=== PATIENT | male | born 1965 | race Caucasian/White ===

== ENCOUNTER 2017-12-01 12:00 | Observation (INO) | payer OTHER, SELFPAY ==
[2017-12-01] MEDS ORDERED: Multivitamins, Adult 10 ML, Thiamine HCl 100 MG, Folic Acid 1 MG in Dextrose 5 %-0.45 %... IV SCH ×4 (13:45)
[2017-12-01 14:20] LABS: #Basophils 0.1 thou/uL (0.0-0.2); #Eosinphils 0.1 thou/uL (0.0-0.7); #Lymphocytes 2.4 thou/uL (1.20-3.40); #Monocytes 0.7 thou/uL (0.11-0.59); #Neutrophils 7.3 thou/uL (1.40-6.50); %Basophils 0.8 % (0.0-1.0); %Eosinophils 0.5 % (0.0-10.0); %Lymphocytes 22.8 % (21.0-51.0); %Monocytes 6.9 % (0.0-10.0); Hemoglobin 18.1 g/dL (14.0-18.0); Mean Corpuscular HGB CONC 34.9 g/dL (32.0-36.0); Mean Corpuscular Hemoglobin 31.7 pg (27.0-31.0); Mean Platelet Volume 6.4 fL (7.4-10.4); Platelet Count 273 thou/uL (130-400); RBC Distribution Width 12.7 % (11.5-14.5); White Blood Cell (WBC) Count 10.6 thou/uL (4.8-10.8)
[2017-12-01 14:42] LABS: Troponin I Less than 0.010 ng/mL (< 0.028)
--- NOTE | 2017-12-01 14:45 | RAD ---
SINGLE VIEW OF THE CHEST: COMPARISON: 12/25/16. HISTORY: Chest pain. FINDINGS: Single view of the chest shows a normal sized cardiomediastinal silhouette. There is no evidence of c onsolidation, mass, or pleural effusion. The bones are unremarkable. IMPRESSION: No evidence of acute cardiopulmonary disease. POS: [facility]
[2017-12-01 14:48] LABS: ALT (SGPT) 123 U/L (8-55); AST (SGOT) 150 U/L (5-34); Acetaminophen Less than 6.0 mcg/mL (10.0-30.0); Albumin 4.5 g/dL (3.5-5.0); Alcohol 222 mg/dL (Less than 10); Alkaline Phosphatase 88 U/L (40-150); Anion Gap 21 mmol/L (10-20); BUN (Urea Nitrogen) 11 mg/dL (8.4-25.7); Bilirubin, Total 0.5 mg/dL (0.2-1.2); CK (CPK) 88 U/L (30-200); Calc. Creatinine Clearance 0 mL/min (70-130); Calcium 8.8 mg/dL (7.8-10.44); Carbon Dioxide 16 mmol/L (22-29); Chloride 97 mmol/L (98-107); Estimated GFR-MDRD Greater than 90; Globulin 3.5 g/dL (2.4-3.5); Glucose 104 mg/dL (70-105); Lipase 24 U/L (8-78); Potassium 4.4 mmol/L (3.5-5.1); Salicylate Less than 8.0 mg/dL (15.0-30.0); Sodium 130 mmol/L (136-145)
[2017-12-01] MEDS ORDERED: Nitroglycerin 2% Ointment 1 INCH/1 GM Packet ONE (14:54)
[2017-12-01] MEDS ORDERED: Lorazepam 2 MG/ML VIAL ONE (14:55)
[2017-12-01 15:27] LABS: Bilirubin Negative (Negative); Blood, Urine Moderate (Negative); Clarity CLEAR (Clear); Glucose, Urine (Dipstick) Negative (Negative); Leukocyte Negative (Negative); Nitrite Negative (Negative); Protein, Urine (Dipstick) Trace mg/dL (Neg-Trace); Specific Gravity, Urine 1.018 (1.002-1.036); Urobilinogen 0.2 mg/dL (0.2-1.0); pH, Urine 5.5 (5.0-9.0)
[2017-12-01 15:29] LABS: Bacteria/HPF None Seen HPF (None Seen); RBC/HPF None Seen HPF (0-3); Squamous Epithelial 0-3 HPF (0-3); WBC/HPF 0-3 HPF (0-3)
[2017-12-01 15:32] LABS: Pathc Cast-AUWi Flag 6.36 (0-2.49)
[2017-12-01 15:37] LABS: Amphetamine Not Detected (NotDetected); Barbiturates Screen Not Detected (NotDetected); Benzodiazepine Screen Not Detected (NotDetected); Cocaine Metabolite Screen Not Detected (NotDetected); Medtox Control Line Valid? VALID (VALID); Medtox Reader # READER 1; Methadone Not Detected (NotDetected); Methamphetamine Not Detected (NotDetected); Opiate Screen Not Detected (NotDetected); Oxycodone Screen Not Detected (NotDetected); Phencyclidine (PCP) Not Detected (NotDetected); THC/Cannabinoid Screen Not Detected (NotDetected); Tricyclic Screen Not Detected (NotDetected)
[2017-12-01 15:40] LABS: Hyaline Casts/LPF 4-6 HYALINE CAST LPF (0-3 Hyaline)
[2017-12-01 17:41] LABS: Troponin I Less than 0.010 ng/mL (< 0.028)
[2017-12-01] MEDS ORDERED: Milk Of Magnesia 30 ML UDCUP PO PRN (18:34)
[2017-12-01] MEDS ORDERED: Loperamide HCl 2 MG CAP PO PRN (18:34)
[2017-12-01] MEDS ORDERED: Chloraseptic Spray 180 ml Bottle PO PRN (18:34)
[2017-12-01] MEDS ORDERED: Ondansetron HCl/PF 4 MG/2 ML Vial IVP PRN (18:34)
[2017-12-01] MEDS ORDERED: Artificial Tear Sol 15 ML BOT EA EYE PRN (18:34)
[2017-12-01] MEDS ORDERED: Mag-Al 1200 mg/1200 mg/30 ML UDCUP PO PRN (18:34)
[2017-12-01] MEDS ORDERED: Sodium Chloride 0.65% Nasal 44 ML BOT EA NARE PRN (18:34)
[2017-12-01] MEDS ORDERED: Eucerin (Mineral Oil/Petrolatum,White) 30 gm Jar TOP PRN (18:34)
[2017-12-01] MEDS ORDERED: Diabetic Tussin 200 MG/10 ML UDCUP PO PRN (18:34)
[2017-12-01] MEDS ORDERED: Acetaminophen 325 MG TAB PO PRN (18:34)
[2017-12-01] MEDS ORDERED: Ondansetron ODT 4 MG TAB PO PRN (18:34)
[2017-12-01] MEDS ORDERED: Senokot 8.6 MG TAB PO PRN (18:34)
[2017-12-01] MEDS ORDERED: HYDROcodone/Acetaminophen 5/325 mg Tablet PO PRN (18:34)
[2017-12-01] MEDS ORDERED: Loratadine 10 MG TAB PO PRN (18:34)
[2017-12-01 18:45] VITALS: BMI 34.7
[2017-12-01] MEDS: Lorazepam 2 MG/ML VIAL SLOW IVP PRN ×2 (19:35→22:35)
[2017-12-01] MEDS ORDERED: Multivitamins, Adult 10 ML, Folic Acid 1 MG, Thiamine HCl 100 MG in Dextrose 5 %-0.45 %... IV SCH ×4 (20:00)
[2017-12-01] MEDS ORDERED: Pantoprazole 40 MG VIAL IVP SCH (21:00)
[2017-12-01 21:15] LABS: Troponin I Less than 0.010 ng/mL (< 0.028)
[2017-12-01] MEDS: hydrALAZINE 20 MG/ML VIAL SLOW IVP PRN (21:31)
--- NOTE | 2017-12-01 21:37 | HP ---
PRIMARY CARE PHYSICIAN: [facility]. REASON FOR ADMISSION: Alcohol intoxication, alcohol withdrawal syndrome, chest pain. HISTORY OF PRESENT ILLNESS: A 52-year-old male, who has history of alcohol abuse. He drinks in kris e episode. For last 10 days, he is drinking heavily. He is drinking 1 case of beer every day. He r eports that to get rid of his nervousness and anxiety, he drinks alcohol more and more. He was frust rated with the drinking. He was not able to stop drinking. When he tried to stop drinking, he was f eeling miserable. He was feeling anxious, palpitation, and vague chest discomfort. He went to local emergency room in drunk condition, but he was not allowed to stay in hospital. He was frustrated an d getting more and more anxious and that is why he wanted to get help and he came to our emergency ro om. In the emergency room, he was intoxicated. He was already started withdrawing from alcohol. He was anxious, apprehensive, tachycardic, hypertensive. He was not able to keep anything down. He pulliam d 2 episodes of vomiting today without any hematemesis, without any melena or hematochezia. He does feel mild epigastric burning discomfort, but denies any melena and denies any hematemesis. He denies any fall, trauma, or headache. He denies any fever or chills. He denies any flu-like illness. Thi s patient also had a similar-type of binge drinking alcohol in the past, required admission. When I saw this patient in the emergency room, he was not having any chest pain. He was given 81 and after that his anxiety significantly got better and his palpitation was improved and his chest pain subsided. ALLERGIES: No known drug allergies. CURRENT HOME MEDICATIONS: Omeprazole 20 mg p.o. daily, folic acid 1 mg p.o. daily, ferrous sulfate 3 25 mg p.o. daily, thiamine 100 mg p.o. daily, lisinopril 20 mg p.o. daily. REVIEW OF SYSTEMS: The following complete review of systems was negative, unless otherwise mentioned in the HPI or below: Constitutional: Weight loss or gain, ability to conduct usual activities. Sk in: Rash, itching. Eyes: Double vision, pain. ENT/Mouth: Nose bleeding, neck stiffness, pain, te nderness. Cardiovascular: Palpitations, dyspnea on exertion, orthopnea. Respiratory: Shortness of breath, wheezing, cough, hemoptysis, fever, or night sweats. Gastrointestinal: Poor appetite, abdo silvano pain, heartburn, nausea, vomiting, constipation, or diarrhea. Genitourinary: Urgency, frequen cy, dysuria, nocturia. Musculoskeletal: Pain, swelling. Neurologic/Psychiatric: Anxiety, depressi on. Allergy/Immunologic: Skin rash, bleeding tendency. Please see my HPI for pertinent positives a nd negatives. All other review of systems reviewed and negative except as mentioned in the HPI. PAST MEDICAL HISTORY: Hypertension and alcohol abuse. PAST PSYCHIATRIC HISTORY: Anxiety and depression. PAST SURGICAL HISTORY: Upper endoscopy, but no other surgery. FAMILY HISTORY: Mother has history of aortic aneurysm. Father has history of diverticulosis. SOCIAL HISTORY: Patient is smoking about 1-pack per day. He drinks beer in binge episode and curren daniely he was drinking one case of beer every day basis. He has been binge drinking a bit for the last 20 years. He denies any other illicit drug abuse. He lives with his parents. EMERGENCY ROOM COURSE: Patient was given banana bag, nitro patch, aspirin, and Ativan. PHYSICAL EXAMINATION: VITAL SIGNS: On arrival, blood pressure 175/110, pulse 120, respiratory rate 22, temperature 98.3, s aturation 97% on room air, weight 102 kilograms. GENERAL: The patient is currently poorly groomed, tachycardic, hypertensive, anxious, apprehensive. HEENT: Head: Normocephalic and atraumatic. Eyes: Pupils round and reactive to light. Extraocular muscle intact. No nystagmus. ENT: Dry-appearing mucous membranes. Poor dentition. No oral lesio ns. No pharyngeal erythema. No exudate. NECK: Supple, no JVD, no thyromegaly, no carotid bruit. LUNGS: Clear to auscultation without any rhonchi or rales. CARDIAC: S1 and S2 regular, tachycardia, no murmur, no gallop, no rub. ABDOMEN: Obesity present. Bowel sounds present. No peritoneal sign. No epigastric tenderness. No suprapubic tenderness. No rebound tenderness. BACK EXAMINATION: Unremarkable, no CVA tenderness. EXTREMITIES: Upper extremity passive movement of all joints are normal. Lower extremities: No fer a. Good peripheral pulsation. SKIN: No skin rash. HEMATOLOGICAL SYSTEM: No lymphadenopathy. NEUROLOGIC: Patient has tremor. No focal neurological deficit noted. The patient moves all 4 limbs . Speech normal. SIGNIFICANT LABORATORY DATA: EKG showing normal sinus rhythm, sinus tachycardia, left axis deviation . Chest x-ray, based on my review, no acute cardiopulmonary process. CBC: WBC 10.6, hemoglobin 18. 1, platelets 273. BMP: Sodium 130, potassium 4.4, chloride 97, carbon dioxide 16, anion gap 21, BUN 11, creatinine 0.79, glucose 104, calcium 8.8. LFTs: Total bilirubin 0.5, AST 150, ALT 123, alkali ne phosphatase 88, albumin 4.5, lipase 24. CK 88. Cardiac enzymes negative x2. Urinalysis, blood m ore moderate, RBC not seen. Urine drug screen negative, but alcohol level 222. ASSESSMENT AND PLAN: 1. Acute alcohol intoxication due to binge drinking habit. 2. Acute alcohol withdrawal syndrome. 3. Anion gap metabolic acidosis due to alcohol. 4. Hyponatremia and hypochloremia, likely due to beer potomania. 5. Transaminitis, likely due to alcohol abuse. 6. Hemoconcentration, likely due to dehydration. 7. Obesity with BMI 34. 8. Hypertension. 9. Peptic ulcer disease. 10. Chest pain, likely due to anxiety neurosis. 11. Tobacco abuse disorder and alcoholism. PLAN: Observation to telemetry floor. Do serial cardiac enzymes x3 to rule out acute coronary syndr ome. Start selected home medications including ferrous sulfate and Protonix, start a banana bag with multivitamin, start Ativan 1 mg IV q.2 hourly p.r.n., and start alcohol abstinence program protocol treatment. Check hepatitis profile to rule out any hepatitis. Continue with IV fluid and repeat lab s tomorrow. Counseling is given to avoid tobacco and alcohol abuse. We will offer nicotine patch if needed. We will repeat labs tomorrow. DISCUSSION: This patient had ultrasound before and it was normal. He had echocardiography before, w hich was unremarkable. His chest pain description is noncardiac, most likely anxiety neurosis. His Abnormal liver function tests, likely due to alcohol, but we will rule out hepatitis profile. We marisol l hydrate with IV fluid and we will repeat BMP tomorrow. If this patient's condition does not improv e in 24 hours, then we will consider changing to inpatient status. CODE STATUS: The patient is FULL CODE. The patient is making his decision by himself. He does not have any surrogate decision maker. Gastrointestinal prophylaxis, Protonix 40 mg IV b.i.d.
[2017-12-01 23:52] LABS: CKMB 1.8 ng/mL (0-6.6); Troponin I Less than 0.010 ng/mL (< 0.028)
[2017-12-02] MEDS: Lorazepam 2 MG/ML VIAL SLOW IVP PRN ×4 (01:03→12:29)
[2017-12-02 02:22] LABS: #Basophils 0.1 thou/uL (0.0-0.2); #Eosinphils 0.1 thou/uL (0.0-0.7); #Lymphocytes 2.2 thou/uL (1.20-3.40); #Neutrophils 6.8 thou/uL (1.40-6.50); %Basophils 0.9 % (0.0-1.0); %Eosinophils 0.6 % (0.0-10.0); %Lymphocytes 21.3 % (21.0-51.0); %Monocytes 9.8 % (0.0-10.0); %Neutrophils 67.2 % (42.0-75.0); Hemoglobin 15.2 g/dL (14.0-18.0); Mean Corpuscular Hemoglobin 31.6 pg (27.0-31.0); Mean Corpuscular Volume 90.2 fl (80.0-94.0); Mean Platelet Volume 6.2 fL (7.4-10.4); Platelet Count 211 thou/uL (130-400); RBC Distribution Width 12.6 % (11.5-14.5); Red Blood Cell (RBC) Count 4.82 mill/uL (4.70-6.10); White Blood Cell (WBC) Count 10.1 thou/uL (4.8-10.8)
[2017-12-02 02:49] LABS: CKMB 1.7 ng/mL (0-6.6); Troponin I Less than 0.010 ng/mL (< 0.028)
[2017-12-02 03:14] LABS: ALT (SGPT) 103 U/L (8-55); AST (SGOT) 114 U/L (5-34); Albumin 3.7 g/dL (3.5-5.0); Alkaline Phosphatase 75 U/L (40-150); Anion Gap 17 mmol/L (10-20); BUN (Urea Nitrogen) 9 mg/dL (8.4-25.7); Calc. Creatinine Clearance 188 mL/min (70-130); Calcium 8.8 mg/dL (7.8-10.44); Carbon Dioxide 18 mmol/L (22-29); Cardiac Risk 2.5 (Less than 4.5); Chloride 100 mmol/L (98-107); Cholesterol 185 mg/dl (< 200 Desired); Estimated GFR-MDRD Greater than 90; Glucose 90 mg/dL (70-105); HDL Cholesterol 73 mg/dL (>60 Neg Risk); LDL Cholesterol, Calculated 85 mg/dL; Magnesium 1.9 mg/dL (1.6-2.6); Phosphorus 2.9 mg/dL (2.3-4.7); Potassium 3.8 mmol/L (3.5-5.1); Protein, Total 6.7 g/dL (6.0-8.3); Sodium 131 mmol/L (136-145); Triglycerides 133 mg/dL (Less than 150)
[2017-12-02 03:25] LABS: HBCM Index 0.09 S/CO (0-0.79); HBSAg Index 0.78 S/CO (0-0.99); Hep A IgM AB Non-Reactive (NonReactive); Hep A IgM S/CO 0.17 S/CO (0-0.79); Hep B Surf Ag Non-Reactive S/CO (NonReactive); Hep C IgG Ab Non-Reactive (NonReactive); Hep C Index 0.19 S/CO (0-0.79); Hepatitis B Core IGM Abs Non-Reactive (NonReactive)
[2017-12-02] MEDS: hydrALAZINE 20 MG/ML VIAL SLOW IVP PRN (04:06)
[2017-12-02] MEDS ORDERED: Ferrous Sulfate 325 MG TAB PO SCH (09:00)
[2017-12-02] MEDS ORDERED: Folic Acid 1 MG TAB PO SCH (09:00)
[2017-12-02] MEDS ORDERED: Cyanocobalamin (Vitamin B-12) 1,000 MCG TAB PO SCH (09:00)
[2017-12-02] MEDS ORDERED: FLU VACC QS2017-18 36 mo. & older 0.5 ML SYRINGE IM ONE (09:00)
[2017-12-02] MEDS ORDERED: Lisinopril 20 MG TAB PO SCH (09:00)
[2017-12-02] MEDS ORDERED: Multivitamin W/ Minerals 1 TAB PO SCH (09:00)
[2017-12-02] MEDS ORDERED: Metoprolol Tartrate 25 MG TAB PO SCH (09:00)
--- NOTE | 2017-12-02 10:40 | PDOC.PN ---
- Subjective Encounter Start Date: 12/02/17 Encounter Start Time: 07:00 -: old records requested/rev Patient seen and examined. No new complaints. No overnight events - Objective Resuscitation Status: Resuscitation Status FULL:Full Resuscitation MAR Reviewed: Yes Vital Signs & Weight: Vital Signs (12 hours) Temp Pulse Resp BP BP BP Pulse Ox 12/02/17 08:00 99.1 F 114 H 18 12/02/17 07:47 99.1 F 114 H 18 178/99 H 95 12/02/17 05:59 114 H 180/93 H 12/02/17 04:06 106 H 194/105 H 12/02/17 04:00 194/105 H 12/02/17 03:57 98.7 F 106 H 20 194/105 H 95 12/02/17 00:00 176/86 H 12/01/17 23:34 98.6 F 110 H 18 176/86 H 93 L Weight Weight 235 lb 5 oz I&O: 12/01/17 12/02/17 12/03/17 06:59 06:59 06:59 Intake Total 734 Balance 734 Result Diagrams: 12/02/17 02:15 12/02/17 02:15 EKG Reviewed by me: Yes Phys Exam - Physical Examination Constitutional: NAD HEENT: PERRLA, moist MMs, sclera anicteric Neck: no JVD, supple Respiratory: no wheezing, no rales, no rhonchi Cardiovascular: RRR, no significant murmur, no rub Gastrointestinal: soft, non-tender, no distention, positive bowel sounds Musculoskeletal: no edema, pulses present Neurological: non-focal, normal sensation, moves all 4 limbs Psychiatric: normal affect, A&O x 3 Skin: no rash, normal turgor Dx/Plan (1) Alcohol intoxication Status: Acute (2) Alcohol withdrawal Code(s): F10.239 - ALCOHOL DEPENDENCE WITH WITHDRAWAL, UNSPECIFIED Status: Acute (3) High anion gap metabolic acidosis Code(s): E87.2 - ACIDOSIS Status: Acute (4) Sinus tachycardia Code(s): R00.0 - TACHYCARDIA, UNSPECIFIED Status: Acute (5) Chronic alcoholism Code(s): F10.20 - ALCOHOL DEPENDENCE, UNCOMPLICATED Status: Chronic Comment : on ASE, Counselled (6) Hypertension Code(s): I10 - ESSENTIAL (PRIMARY) HYPERTENSION Status: Chronic (7) Obesity (BMI 30.0-34.9) Code(s): E66.9 - OBESITY, UNSPECIFIED Status: Chronic (8) Tobacco abuse Code(s): Z72.0 - TOBACCO USE Status: Chronic Comment: Counselled - Plan cont current plan of care * add metoprolol for tachycardia * add ativan on discharge for anxiety * medication reviewed as below * symptomatic treatment * see discharge summery * all new medication prescription sent to pharmacy. Review of Systems - Review of Systems ENT: negative: Ear Pain, Ear Discharge, Nose Pain, Nose Discharge, Nose Congestion, Mouth Pain, Mouth Swelling, Throat Pain, Throat Swelling, Other Respiratory: negative: Cough, Dry, Shortness of Breath, Hemoptysis, SOB with Excertion, Pleuritic Pain, Sputum, Wheezing Cardiovascular: negative: chest pain, palpitations, orthopnea, paroxysmal nocturnal dyspnea, edema, light headedness, other Gastrointestinal: negative: Nausea, Vomiting, Abdominal Pain, Diarrhea, Constipation, Melena, Hematochezia, Other Genitourinary: negative: Dysuria, Frequency, Incontinence, Hematuria, Retention , Other Musculoskeletal: negative: Neck Pain, Shoulder Pain, Arm Pain, Back Pain, Hand Pain, Leg Pain, Foot Pain, Other Skin: negative: Rash, Lesions, Dante, Bruising, Other - Medications/Allergies Allergies/Adverse Reactions: Allergies Allergy/AdvReac Type Severity Reaction Status Date / Time No Known Allergies Allergy Verified 12/01/17 19:48 Medications: Current Medications Acetaminophen (Tylenol) 650 mg PO Q4H PRN PRN Reason: Headache/Fever or Pain Hydrocodone Bitart/Acetaminophen ([place] 5/325) 1 tab PO Q4H PRN PRN Reason: Moderate Pain (4-6) Last Admin: 12/01/17 21:29 Dose: 1 tab Al Hydroxide/Mg Hydroxide (Maalox) 30 ml PO Q6H PRN PRN Reason: Heartburn or Indigestion Artificial Tears (Tears Renewed 15ml Bottle) 0 drop EA EYE PRN PRN PRN Reason: Dry Eyes Cyanocobalamin (Vitamin B-12) 1,000 mcg PO DAILY [facility] Last Admin: 12/02/17 08:39 Dose: 1,000 mcg Ferrous Sulfate (Feosol) 325 mg PO DAILY [facility] Last Admin: 12/02/17 08:39 Dose: 325 mg Folic Acid (Folvite) 1 mg PO DAILY [facility] Last Admin: 12/02/17 08:39 Dose: 1 mg Guaifenesin (Robitussin Sf) 200 mg PO Q4H PRN PRN Reason: Cough Hydralazine HCl (Apresoline) 10 mg SLOW IVP Q4H PRN PRN Reason: Systolic BP > 180 Last Admin: 12/02/17 04:06 Dose: 10 mg Iron/Minerals/Multivitamins (Theragran M) 1 tab PO DAILY [facility] Last Admin: 12/02/17 08:39 Dose: 1 tab Lisinopril (Zestril) 20 mg PO DAILY [facility] Last Admin: 12/02/17 08:39 Dose: 20 mg Loperamide HCl (Imodium) 2 mg PO PRN PRN PRN Reason: Diarrhea/Loose Stools Loratadine (Claritin) 10 mg PO DAILYPRN PRN PRN Reason: Sinus Symptoms Lorazepam (Ativan) 1 mg SLOW IVP Q2H PRN PRN Reason: Anxiety/Agitation Last Admin: 12/02/17 08:45 Dose: 1 mg Magnesium Hydroxide (Milk Of Magnesium) 30 ml PO DAILYPRN PRN PRN Reason: Constipation Metoprolol Tartrate (Lopressor) 25 mg PO BID [facility] Last Admin: 12/02/17 08:39 Dose: 25 mg Mineral Oil/White Petrolatum (Eucerin Cream) 0 gm TOP BIDPRN PRN PRN Reason: Dry Skin Ondansetron HCl (Zofran Odt) 4 mg PO Q6H PRN PRN Reason: Nausea/Vomiting Ondansetron HCl (Zofran) 4 mg IVP Q6H PRN PRN Reason: Nausea/Vomiting Pantoprazole Sodium (Protonix) 40 mg PO DAILY [facility] Last Admin: 12/02/17 08:39 Dose: 40 mg Phenol (Chloraseptic [place] 180 Ml Bot) 0 ml PO PRN PRN PRN Reason: Sore Throat Senna (Senokot) 2 tab PO HSPRN PRN PRN Reason: Constipation Sodium Chloride ([place] Nasal [place] 0.65%) 0 ml EA NARE QIDPRN PRN PRN Reason: Nasal Congestion Thiamine HCl (Thiamine) 100 mg PO DAILY [facility] Last Admin: 12/02/17 08:39 Dose: 100 mg
--- NOTE | 2017-12-02 11:10 | DIS ---
DATE OF ADMISSION: 12/01/2017 DATE OF DISCHARGE: 12/02/2017 PRIMARY CARE PHYSICIAN: Pete Collins D.O. DISCHARGE DISPOSITION: Home. PRIMARY DISCHARGE DIAGNOSES: Alcohol intoxication, alcohol withdrawal syndrome, abnormal liver funct ion tests due to alcohol abuse, sinus tachycardia due to alcohol withdrawal, elevated anion gap, meta bolic acidosis due to alcohol. SECONDARY DISCHARGE DIAGNOSES: Alcoholism, tobacco abuse disorder, gastroesophageal reflux disease, hypertension, obesity with body mass index 34. PRIMARY PROCEDURE/OPERATION: None. RADIOLOGICAL INVESTIGATION: Chest x-ray normal. SIGNIFICANT LABORATORY DATA: Hemoglobin 15.2, creatinine 0.70, AST 114, ALT 103, LDL 85. Cardiac en zymes negative. Urinalysis unremarkable. Urine drug screen negative. Alcohol level was 222. Hepat itis profile negative. DISCHARGE MEDICATIONS: Vitamin B12 1000 mcg p.o. daily, ferrous sulfate 325 mg p.o. daily, lisinopri l 20 mg p.o. daily, lorazepam 1 mg q.6 h. p.r.n. for anxiety, Lopressor 25 mg p.o. b.i.d., omeprazole 20 mg p.o. daily, thiamine 100 mg p.o. daily. CONTRAINDICATIONS: None. CODE STATUS: FULL CODE. INPATIENT CONSULTANTS: None. ALLERGIES: No known drug allergies. DISCHARGE PLAN: Post hospital, the patient will follow up with primary care physician. HOSPITAL COURSE: The patient is a 52-year-old male who has alcoholism history and he is coming inter mittently in hospital with binge drinking episode. This time, he was also having alcohol intoxicatio n and at the same time he was withdrawing from alcohol. He requested to get help and that is why we kept him in hospital. We treated overnight and today for alcohol withdrawal syndrome, seems like merle desouza is now stabilized. I am prescribing Ativan to take at home and I provided counseling to avoid a lcohol and tobacco abuse. His pulse is high and that is why we added metoprolol on his regimen and t hat is also related with his withdrawal. He will continue his lisinopril. While in hospital, his bl ood pressure was high because he was getting IV fluid and that was contributing to high blood pressur e, but that IV fluid was stopped. At this point, the patient is medically stable for discharge and he is advised to enroll himself in a lcohol rehabilitation program. The patient is seen and examined at bedside today. Please see my progress note from today for furthe r details.
[2017-12-02 12:24] VITALS: BP 142/80; TEMP 99.3
[2017-12-02] MEDS ORDERED: Multivitamins, Adult 10 ML, Folic Acid 1 MG, Thiamine HCl 100 MG in Dextrose 5 %-0.45 %... IV SCH ×4 (15:00)
--- NOTE | 2017-12-04 14:59 | EKG ---
Test Reason : Blood Pressure : / mmHG Vent. Rate : 098 BPM Atrial Rate : 098 BPM P-R Int : 174 ms QRS Dur : 084 ms QT Int : 336 ms P-R-T Axes : 019 000 015 degrees QTc Int : 428 ms Normal sinus rhythm Normal ECG Leftward axis Confirmed by DANY ODELL DO ([id number]), newspaper editor KARIN BALTAZAR ([id number]) on 12/04/2017 2:59:04 PM Referred By: Confirmed By:DANY ODELL DO
== END 2017-12-02 13:59 | disposition home or self-care (01) ==
LOC: ERS 12:00 → 2SW 16:26
PROVIDERS: ADMIT Internal Medicine; ATTEND Internal Medicine
DX: F10.239 Alcohol dependence with withdrawal, unspecified (principal); F10.229 Alcohol dependence with intoxication, unspecified; R07.89 Other chest pain; R00.0 Tachycardia, unspecified; R94.5 Abnormal results of liver function studies; R74.0 Nonspecific elevation of levels of transaminase and lactic acid dehydrogenase [LDH]; R79.89 Other specified abnormal findings of blood chemistry; E87.2 Acidosis; I10 Essential (primary) hypertension; K21.9 Gastro-esophageal reflux disease without esophagitis; K27.9 Peptic ulcer, site unspecified, unspecified as acute or chronic, without hemorrhage or perforation; E87.1 Hypo-osmolality and hyponatremia; E87.8 Other disorders of electrolyte and fluid balance, not elsewhere classified; F41.9 Anxiety disorder, unspecified; F32.9 Major depressive disorder, single episode, unspecified; F17.200 Nicotine dependence, unspecified, uncomplicated; E66.9 Obesity, unspecified; Z68.34 Body mass index [BMI] 34.0-34.9, adult; Z79.899 Other long term (current) drug therapy; Z98.890 Other specified postprocedural states; Z83.79 Family history of other diseases of the digestive system; Z82.49 Family history of ischemic heart disease and other diseases of the circulatory system
CPT/HCPCS: 36415; 71045; 80053; 80061; 80074; 80306; 80307; 81003; 81015; 82550; 82553; 83690; 83735; 84100; 84484; 85025; 90471; 90682; 90732; 93005; 96365; 96366; 96375; 96376; C9113; G0008; G0009; G0378; J0360; J2060; J3411; J7042; Q2036